=== PATIENT | male | born 1990 | race Caucasian/White ===

== ENCOUNTER 2016-06-25 14:35 | Emergency (ER) | payer OTHER ==
[~2016-06-25] VITALS: Ht 182.9 cm; Wt 90.9 kg
[~2016-06-25 14:35] MED LIST: PRAZ1CAP2 PO
[2016-06-25 14:50] VITALS: BP 132/83; PULSE 96; RESP 16; O2SAT 96
--- NOTE | 2016-06-25 16:10 | ED.REPORT ---
HPI-Abd Pain F 40 and Over Date of Service Jun 25, 2016 ED Provider: Spenser Oviedo PA-C Nida is a 26-year-old male with history of cerebral palsy who presents with chief complaint of nerve pain in the left side of his face. Patient states that the pain was present when he woke up about 3 hours ago. He describes the pain as "like when you put an ice cube on a tooth" or "electric." He says the pain also refers to his left palm. Denies headache. He has no other complaints. Nursing Notes Stated Complaint: FACIAL NERVE PAIN Chief Complaint: General Complaint Nursing Notes Reviewed: Yes Allergies: Coded Allergies: haloperidol (Verified Allergy, Unknown, 12/01/15) lorazepam (Verified Allergy, Unknown, Muscle cramps, 12/01/15) Scheduled Carbamazepine (Carbamazepine) 200 Mg Tablet 200 MG PO BID Prazosin (Prazosin) 1 Mg Capsule 2 MG PO HS Scheduled PRN Carbamazepine (Carbamazepine) 200 Mg Tablet 200 MG PO QID PRN PRN For Pain Ibuprofen (Ibuprofen) 600 Mg Tablet 600 MG PO QID PRN PRN For Pain General Time Seen by MD: 15:55 Chief Complaint Other (nerve pain) Sudden in Onset?: Yes Past Medical History Past Medical History Polysubstance abuse Multiple suicide attempts Cerebral Palsy Renal insufficiency Depression Past Surgical History None Family History noncontributory Smoking History Current Every Day Smoker Social History Polysubstance drug use Alcohol Use: 1-3 per day Drug Use: In recovery, Meth Other Social History: Local resident, Homeless Ambulatory Status Independent Review of Systems General: Denies fever, chills, malaise. HEENT: Denies congestion, headache, sore throat. Respiratory: Denies dyspnea, Cardiovascular: Denies chest pain Gastrointestinal: Denies vomiting, diarrhea, abdominal pain. Otherwise as noted in HPI. Physical Exam General: Well developed, well nourished, no acute distress. Head: Atraumatic, normocephalic. Eyes: No scleral icterus or injection. No discharge. Vision grossly intact. ENT: Voice clear, hearing grossly intact. Respiratory: Regular rate and rhythm. Breath sounds present, clear to auscultation and equal bilaterally. Cardiovascular: Regular rate and rhythm, without murmur, gallop or rub. No pedal edema. Gastrointestinal: Abdomen flat and non-tender without guarding or rebound. Bowel sounds normoactive. Skin: Warm and dry. Neurological: Highly reactive to any touch such as auscultation of the lungs. Slightly ataxic heel toe gait. Cranial nerves: Vision grossly intact, PERRL, EOMI. slight left facial droop, highly tender to light touch over distribution of trigeminal nerve. Voice clear with slightly slurred speech, no drooling/pooling of saliva, uvula rises midline. Psychological: alert and oriented. Speech appropriate, linear and logical. Behavior appropriate. Vital Signs Vital Signs (First) Date Time Temp Pulse Resp B/P Pulse Ox O2 Delivery O2 Flow Rate FiO2 06/25/16 14:50 36.9 96 16 132/83 96 Room Air Initial VS: Reviewed, Vital signs normal Re-Eval/Medical Decision Med Decision/Clinical Course I discussed this case with Dr. Aguirre In brief this is a 26-year-old male well known to the department presents with chief complaint of "electric" nerve pain over his face that began approximately 3 hours ago. History of cerebral palsy. Denies headache. Presentation is inconsistent with CVA or intracranial mass. Possible trigeminal neuralgia. Prescribed carbamazepine and primary care follow-up. Provided return precautions Discharge & Departure Primary Impression: Trigeminal neuralgia of left side of face Disposition: Home Discharge Condition All VS Reviewed: Yes Condition: Stable Patient Instructions: Trigeminal Neuralgia (ED) Additional Instructions: Evaluation for nerve pain in the left side of the face. Skin physical are reassuring this is unlikely to be an emergent condition such as a stroke or brain tumor. Evaluation is most consistent with trigeminal neuralgia, which is pain in the major nerve in your face. This is treated with carbamazepine ( Tegretol) 200 mg twice a day, which I have written a prescription for. Please follow up with your primary care provider in the next few days to monitor progress and possibly adjust the medication. Return to emergency department for any new or worsening symptoms. Referrals: Goyo To DO (PCP) EDSupervising Provider for APC: Lexi Aguirre MD, Shawna L MD Jun 25, 2016 16:10 Spenser Oviedo PA-C Jun 25, 2016 16:17
[2016-06-25] MEDS ORDERED: CRB200T PO (16:18)
[2016-06-26] MEDS ORDERED: IBUP-1827 PO (06:17)
[2016-06-26] MEDS ORDERED: CRB200T PO (06:17)
[2016-09-03] MEDS ORDERED: FLUO40CA12 PO (16:20)
[2016-09-03] MEDS ORDERED: NALT50TA PO (16:20)
== END 2016-06-25 16:15 | disposition home or self-care (01) ==
LOC: SED 14:35
DX: G50.0 Trigeminal neuralgia (principal); F17.200 Nicotine dependence, unspecified, uncomplicated; Z59.0 Homelessness; Z88.5 Allergy status to narcotic agent

== ENCOUNTER 2016-06-25 23:51 | Emergency (ER) | payer OTHER ==
[~2016-06-25] VITALS: Ht 182.9 cm; Wt 90.9 kg
[~2016-06-25 23:51] MED LIST changes: +CRB200T PO
[2016-06-26 00:01] VITALS: BP 146/96; PULSE 101; RESP 12; O2SAT 100
--- NOTE | 2016-06-26 03:06 | ED.REPORT ---
HPI-Facial Injury Date of Service Jun 26, 2016 ED Provider: Ronnie Ellis MD 26 year old male with a history of cerebral palsy presents to the ED with five hours of persistent left side facial pain. Patient was seen here in the department earlier today for similar and diagnosed with trigeminal neuralgia. He states that he has not used methamphetamine in the past year. Nursing Notes Stated Complaint: NERVE ISSUE-WAS SEEN TODAY IN THE ER Chief Complaint: General Complaint Nursing Notes Reviewed: Yes Allergies: Coded Allergies: haloperidol (Verified Allergy, Unknown, 12/01/15) lorazepam (Verified Allergy, Unknown, Muscle cramps, 12/01/15) Scheduled Carbamazepine (Carbamazepine) 200 Mg Tablet 200 MG PO BID Prazosin (Prazosin) 1 Mg Capsule 2 MG PO HS Scheduled PRN Carbamazepine (Carbamazepine) 200 Mg Tablet 200 MG PO QID PRN PRN For Pain Ibuprofen (Ibuprofen) 600 Mg Tablet 600 MG PO QID PRN PRN For Pain General Time Seen by Provider: 02:51 Chief Complaint Other (Facial Pain, Left) Hx Obtained From: Patient Arrived By: Walk-in Onset Occurred: 5 - 8 hours ago (5) Symptom Duration: Since onset Progression Since Onset: Constant Past Medical History Past Medical History Polysubstance abuse Multiple suicide attempts Cerebral Palsy Renal insufficiency Depression Past Surgical History None Family History noncontributory Smoking History Current Every Day Smoker Social History Polysubstance drug use Alcohol Use: 1-3 per day Drug Use: In recovery, Meth Other Social History: Local resident, Homeless Ambulatory Status Independent Review of Systems Review of Systems Note: +Facial Pain, Left Musculoskeletal: Denies: Back pain, Extremity pain, Joint pain, Lumbar pain Neurologic: Denies: Focal weakness, Headache, Numbness, Syncope Complete sys rev & neg: except as marked. Physical Exam Initial Vital Signs Vital Signs (First) Date Time Temp Pulse Resp B/P Pulse Ox O2 Delivery O2 Flow Rate FiO2 06/26/16 00:01 36.7 101 12 146/96 100 Room Air Initial VS: Reviewed, Vital signs abnormal Respiratory: Breath sounds normal, Clear to auscultation, No respiratory distress Cardiovascular: Regular rate & rhythm, Heart sounds normal, Intact distal pulses Extremities: Vascular intact, Neuro intact, No swelling, No tenderness Head / Eyes: Normocephalic Fullness near the left angle of the jaw. ENT: Airway patent, Mucous membranes moist Neck: Atraumatic, Supple, Full range of motion, No swelling, Non-tender, No midline vertebral tend, No masses Neurologic: Oriented X3, Speech NL, No motor deficits Left side facial pain, exquisitely tender to touch. General/Constitutional: Awake, Alert, Well nourished Behavior: Positive: Anxious Interpretation & Diagnostics Lab Results Interpretation Test 06/26/16 03:30 Hold Urine Received (Received) Re-Eval/Medical Decision Med Decision/Clinical Course 26-year-old male previously diagnosed with trigeminal neuralgia. He was given gabapentin and carbamazepine here. He was given a prescription for carbamazepine and a referral back to his primary doctor for further evaluation, treatment, and ongoing management. Source of Hx: Old records Counseled Regarding: Diagnosis, Need for follow-up, When/why to return to ED Discharge & Departure Impression: Primary Impression: Trigeminal neuralgia of left side of face Disposition: Home Discharge Condition All VS Reviewed: Yes Condition: Stable Patient Instructions: Trigeminal Neuralgia (ED) Additional Instructions: Carbamazepine 200 mg 4 times a day as needed for pain, #30 prescription written. Ibuprofen 600 mg 4 times a day as needed for pain, #100 prescription written. See your regular doctor as soon as possible to discuss this illness and further evaluation and other treatment modalities. Referrals: Goyo To DO (PCP) Scribe Attestation Portions of this note were transcribed by Darek Garcia. I, Dr. Ellis, personally performed the history, physical exam and medical decision-making; I reviewed and confirmed the accuracy of the information in the transcribed note. Signed by: Jeremy Arellano. 06/26/2016, 06:33 copies to: Goyo To Howard L MD Jun 26, 2016 03:06 Jensen Cardona Jun 26, 2016 03:11 DAREK GARCIA Jun 26, 2016 03:41
[2016-06-26] MEDS ORDERED: carBAMazepine 100 mg Chewable Tablet PO ONE (04:00)
[2016-06-26] MEDS ORDERED: carBAMazepine 200 mg Tablet PO ONE (04:15)
[2016-06-26] MEDS ORDERED: Ketorolac 30 mg/mL 2 mL Inj IM ONE (04:55)
[2016-06-26] MEDS ORDERED: CRB200T PO (06:17)
[2016-06-26] MEDS ORDERED: IBUP-1827 PO (06:17)
[2016-06-26 06:37] VITALS: BP 136/82; PULSE 100; RESP 16; O2SAT 100
[2016-09-03] MEDS ORDERED: FLUO40CA12 PO (16:20)
[2016-09-03] MEDS ORDERED: NALT50TA PO (16:20)
== END 2016-06-26 06:19 | disposition home or self-care (01) ==
LOC: SED 23:51
DX: G50.0 Trigeminal neuralgia (principal); F17.200 Nicotine dependence, unspecified, uncomplicated; Z59.0 Homelessness; Z88.5 Allergy status to narcotic agent
CPT/HCPCS: 81002; 96372; 99284; J1885

== ENCOUNTER 2016-08-28 03:18 | Emergency (ER) | payer OTHER ==
[~2016-08-28 03:18] MED LIST changes: +IBUP-1827 PO
[2016-08-28] MEDS ORDERED: Ketamine 100 mg/mL 5 mL Inj ONE (03:38)
[2016-08-28 03:41] VITALS: BP 144/79; PULSE 141; RESP 24; O2SAT 94
[2016-08-28] MEDS ORDERED: Ketamine 100 mg/mL 5 mL Inj IM ONE ×2 (03:45→04:45)
--- NOTE | 2016-08-28 03:52 | ED.REPORT ---
HPI-Altered Mental Status Date of Service Aug 28, 2016 ED Provider: Goyo Kraus MD Patient is an intoxicated 26 year old male with a history of cerebral palsy, polysubstance abuse, and depression with prior suicide attempts via overdose who presents to the ED via PD following a reported intentional aspirin overdose this morning. The patient called 911 this morning, stating that he had taken 50x aspirin tablets and that he wanted to . The patient stated that he was walking in the [place] and refused to tell the PD his exact location. When he became suspicious that PD would find him, he claimed that he would shoot himself and anyone that he encountered. PD tried to apprehend the patient after he was spotted near [facility]. They chased the patient for 45 minutes using a dog, with the patient running through yards and fences. They finally found the patient laying on the ground limp, catatonic, and groaning. The patient had to be carried by EMS to the ambulance. On arrival to the ED the patient is agitated and states that "I will be good if you let me go". Patient admits to drinking alcohol and states that he used "a little meth" when asked about drug use. He will not admit what medications he took in his apparent overdose. History is severely limited by the patients uncooperative and intoxicated state. Nursing Notes Stated Complaint: INTOXICATED/SUICIDAL Chief Complaint: Psychiatric Complaint Nursing Notes Reviewed: Yes Allergies: Coded Allergies: haloperidol (Verified Allergy, Unknown, 12/01/15) lorazepam (Verified Allergy, Unknown, Muscle cramps, 12/01/15) Scheduled Carbamazepine (Carbamazepine) 200 Mg Tablet 200 MG PO BID Prazosin (Prazosin) 1 Mg Capsule 2 MG PO HS Scheduled PRN Carbamazepine (Carbamazepine) 200 Mg Tablet 200 MG PO QID PRN PRN For Pain Ibuprofen (Ibuprofen) 600 Mg Tablet 600 MG PO QID PRN PRN For Pain General Time Seen by MD: 03:38 Chief Complaint Not acting right Hx Obtained From: Police Unable to Obtain Hx: Intoxicated Arrived By: Police Sudden in Onset?: No Onset Occurred: 1 - 4 hours ago Symptom Duration: Since onset Similar Sx Previous: Yes Past Medical History Past Medical History Polysubstance abuse Multiple suicide attempts, drug overdose of aspirin Cerebral Palsy Renal insufficiency Depression Past Surgical History None Family History noncontributory Smoking History Current Every Day Smoker Social History Polysubstance drug use Alcohol Use: 1-3 per day Drug Use: In recovery, Meth Other Social History: Local resident, Homeless Ambulatory Status Independent Review of Systems Unable to Obtain ROS Intoxicated Physical Exam Initial Vital Signs Vital Signs (First) Date Time Temp Pulse Resp B/P Pulse Ox O2 Delivery O2 Flow Rate FiO2 08/28/16 03:41 37.6 141 24 144/79 94 Room Air Initial VS: Reviewed Skin: Warm, Dry General/Constitutional: Awake Alertness: Positive: Disoriented Behavior: Positive: Uncooperative (thrashing) Disheveled. Initial exam is limited as the patient is uncooperative. Head / Eyes: Atraumatic, Normocephalic, PERRL Neck: Supple, Full range of motion Respiratory / Chest: Breath sounds NL, Breath sounds = bilat, No respiratory distress, No rales, No rhonchi, No wheezing Cardiovascular: Heart rate NL, Regular rhythm, Heart sounds NL, No murmurs Neurologic: Speech NL, No motor deficits Abdomen: Soft, Non-tender Unable to Evaluate: Positive: Uncooperative Upper Extremity / MS: No deformity bruising on the bilateral arms from being restrained Lower Extremity / Pelvis / MS: Atraumatic, No deformity Interpretation & Diagnostics Lab Results Interpretation Result Diagram: 08/28/16 0400 08/28/16 0400 Test 08/28/16 04:00 08/28/16 04:10 White Blood Count 7.4th/mm3 (3.8-10.1) Red Blood Count 4.91mil/mm3 (4.40-5.80) Hemoglobin 15.5g/dL (13.8-17.2) Hematocrit 44.4% (41.0-50.0) Mean Corpuscular Volume 90.4fL (81-100) Mean Corpuscular Hemoglobin 31.6pg (27.0-35.0) Mean Corpuscular Hemoglobin Concent 34.9% (32.0-37.0) Red Cell Distribution Width 12.4% (12.3-15.4) Platelet Count 270bil/L (150-400) Neutrophils (%) (Auto) 82.8% (40-74) Lymphocytes (%) (Auto) 14.6% (14-46) Monocytes (%) (Auto) 2.3% (4-12) Eosinophils (%) (Auto) 0.1% (0-5) Basophils (%) (Auto) 0.1% (0-3) Sodium Level 142mEq/L (134-144) Potassium Level 4.2mEq/L (3.5-5.2) Chloride Level 102mEq/L (97-108) Carbon Dioxide Level 18mmol/L (18-29) Blood Urea Nitrogen 12mg/dL (6-20) Creatinine 0.96mg/dL (0.76-1.27) Estimat Glomerular Filtration Rate 100mL/min (>59) Glucose Level 121mg/dL (60-99) Calcium Level 9.4mg/dL (8.5-10.1) Total Bilirubin 0.4mg/dL (0.0-1.2) Aspartate Amino Transf (AST/SGOT) 27U/L (0-50) Alanine Aminotransferase (ALT/SGPT) 35U/L (0-44) Alkaline Phosphatase 77U/L (25-150) Total Protein 8.1g/dL (6.4-8.4) Albumin 5.2g/dL (3.4-5.0) Thyroid Stimulating Hormone (TSH) 3.170uIU/mL (0.450-4.500) Hold Robert Top Tube Received (Received) Salicylates Level < 3.0ug/mL (30-250) Acetaminophen Level < 15.0ug/mL Rx (10-25) Alcohols 184mg/dL (0-10) Hold Urine Received (Received) Drug Screen / Level Interp Urine drug screen neg CT Head Interpretation CONCLUSION: Normal. Radiologist: Segundo Yadav MD 08/28/2016 - 5:28:56 AM PDT Study: Head CT no contrast Interpretation / Wet Read by: Interpret - Radiologist Re-Eval/Medical Decision Med Decision/Clinical Course 26-year-old with background of schizophrenia, reported suicidal ideation and bizarre behavior that resulted in his arrest and being brought here. He continues to be uncooperative and required ketamine to avoid him injuring himself in restraints, and then Zyprexa. His evaluation is essentially unremarkable otherwise. He has no evidence of either acetaminophen or salicylates on board, a negative tox screen, an elevated alcohol level, and a negative CT. He will need evaluation by mental health services once he has returned from sedation. Signed out at [address] Aguiar. Source of Hx: Old records Re-Evaluation/Progress #1: Time of Eval: 03:45 Re-Evaluation/Progress Note: Patient was evaluated and placed into restraints due to combative behavior. Face to face evaluation done. Re-Evaluation/Progress #2: Time of Eval: 05:43 Re-Evaluation/Progress Note: Rechecked the patient, who is sleeping in bed comfortably. He has snoring respirations and is drooling He remains restrained. Patient Discharge & Departure Shift Change Sign-Out Patient Care Transferred: Yes Discussed Complaint(s): Yes Laboratory Evaluation: Back, reviewed by me Additonal Information: [employer]CHIT[employer] evaluation once sober Impression: Primary Impression: Suicidal ideation Additional Impressions: Acute situational disturbance Alcohol abuse Alcohol intoxication Complication of substance-induced condition: uncomplicated Qualified Code: F10.120 - Alcohol abuse with intoxication, uncomplicated Referrals: Goyo To DO (PCP) Care Transferred to: Dr. Aguiar Care Transferred at: 06:00 Scribe Attestation Portions of this note were transcribed by Ladi Crews. I, Dr. Kraus personally performed the history, physical exam and medical decision-making; I reviewed and confirmed the accuracy of the information in the transcribed note. Signed by: Jeremy Quinn, 08/28/2016 0546 copies to: Goyo To Christopher W MD Aug 28, 2016 03:51 Ladi Crews Aug 28, 2016 04:04
[2016-08-28 04:44] LABS: BASOPHILS % (AUTO) 0.1 % (0-3); EOSINOPHILS % (AUTO) 0.1 % (0-5); MONOCYTES % (AUTO) 2.3 % (4-12); Mean Corpuscular Hemoglobin 31.6 pg (27.0-35.0); Mean Corpuscular Volume 90.4 fL (81-100); NEUTROPHILS % (AUTO) 82.8 % (40-74); Platelet Count 270 bil/L (150-400)
[2016-08-28 06:00] VITALS: BP 136/78; PULSE 82; RESP 16; O2SAT 98
--- NOTE | 2016-08-28 12:02 | DRSVH ---
PROCEDURE: CT BRAIN WITHOUT CONTRAST ([id number]) INDICATIONS: altered mental status TECHNIQUE: Noncontrast 4.5 mm thick angled axial sections acquired from the foramen magnum to the vertex, with c oronal reformats. COMPARISON: [facility], CT, CT BRAIN WO CON, 09/15/2015, 16:22. FINDINGS: Image quality: Excellent. CSF spaces: Basal cisterns are patent. No extra-axial fluid collections. Ventricles are normal in size and shape. Brain: No midline shift. No intracranial masses or hemorrhage. Mar-white matter interface is norm al. Skull and face: Calvarium and visualized facial bones are intact, without suspicious lesions. Sinuses: Visualized sinuses and mastoids are clear. IMPRESSION: 1. No acute intracranial process. Dictated by: Margarita Heaton M.D. on 08/28/2016 at 12:00 Approved by: Margarita Heaton M.D. on 08/28/2016 at 12:01
--- NOTE | 2016-08-28 13:24 | DRSVH ---
PROCEDURE: X-RAY LEFT KNEE, ONE OR TWO VIEWS ([id number]) INDICATIONS: pain TECHNIQUE: 2 views of the knee were acquired. COMPARISON: None. FINDINGS: Bones: Lucencies noted in the proximal left tibia suspicious for nondisplaced, nondepressed lateral t ibial plateau fracture. Soft tissues: Large joint effusion is noted. No suspicious soft tissue calcifications. IMPRESSION: Findings suspicious for lateral tibial plateau fracture. Recommend CT scan of the knee fo r definitive characterization. Dictated by: Rhonda Iqbal MD, PhD on 08/28/2016 at 13:21 Approved by: Rhonda Iqbal MD, PhD on 08/28/2016 at 13:23
[2016-08-28] MEDS ORDERED: HYDROcodone-APAP 5-325 mg Tablet PO ONE (14:00)
--- NOTE | 2016-08-28 15:47 | DRSVH ---
PROCEDURE: CT KNEE LEFT W/O CONTRAST ([id number]) INDICATIONS: L knee pain, tib plat fx? TECHNIQUE: Noncontrast 1-1.5 mm axial sections acquired from the mid-patella to the proximal tibia, with coronal and sagittal reformats. COMPARISON: None. FINDINGS: Image quality: Excellent. Bones: There is a comminuted fracture of the lateral tibial plateau which extends into the tibial spi libra. The posterior margin of the lateral tibial plateau fracture is depressed approximately 4 mm. The lateral margin of the lateral tibial plateau fracture is displaced approximately 4 mm. There is an a vulsion fracture of the proximal tibia medially posterior to the tibial spines at the expected attach ment site of the anterior cruciate ligament. The medial tibial plateau is intact. The distal femur is intact. The patella is intact. Soft tissues: Large knee joint effusion is noted. IMPRESSION: 1. Comminuted, depressed fracture of the lateral tibial plateau (Schatzker's II). 2. Avulsion fracture posterior to the tibial spine at the attachment site of the anterior cruciate li gament. Recommend MRI of the knee to exclude injury involving the anterior cruciate ligament. 3. Large joint effusion. Dictated by: Rhonda Iqbal MD, PhD on 08/28/2016 at 15:31 Approved by: Rhonda Iqbal MD, PhD on 08/28/2016 at 15:45
[2016-08-28] MEDS ORDERED: IBUP800T28 PO (16:32)
[2016-08-28] MEDS ORDERED: HYDR-4003 PO (16:32)
[2016-08-28 17:04] VITALS: BP 145/94; PULSE 130; RESP 18; O2SAT 98
[2016-09-03] MEDS ORDERED: FLUO40CA12 PO (16:20)
[2016-09-03] MEDS ORDERED: NALT50TA PO (16:20)
== END 2016-08-28 16:02 | disposition home or self-care (01) ==
LOC: SED 03:18 → EDBD 03:18 → SED 16:02
DX: R45.851 Suicidal ideations (principal); F43.0 Acute stress reaction; F10.220 Alcohol dependence with intoxication, uncomplicated; S82.252A Displaced comminuted fracture of shaft of left tibia, initial encounter for closed fracture; S82.113A Displaced fracture of unspecified tibial spine, initial encounter for closed fracture; X58.XXXA Exposure to other specified factors, initial encounter; Y92.9 Unspecified place or not applicable; Y99.8 Other external cause status; Y93.02 Activity, running; G80.9 Cerebral palsy, unspecified; F19.20 Other psychoactive substance dependence, uncomplicated; F32.9 Major depressive disorder, single episode, unspecified; F17.200 Nicotine dependence, unspecified, uncomplicated; F20.9 Schizophrenia, unspecified; Y90.6 Blood alcohol level of 120-199 mg/100 ml; Z91.5 Personal history of self-harm; Z59.0 Homelessness; Z88.8 Allergy status to other drugs, medicaments and biological substances
CPT/HCPCS: 36415; 51702; 70450; 73560; 73700; 80053; 82075; 84443; 85025; 96372; 99285; G0480; S0166

== ENCOUNTER 2016-09-04 09:40 | Inpatient (IN) | payer OTHER ==
[2016-09-04] VITALS (12 sets, daily range): BP systolic 123–163; BP diastolic 76–90; PULSE 89–119; RESP 14–20; O2SAT 94–98
[~2016-09-04] VITALS: Ht 182.9 cm; Wt 92.0 kg
[~2016-09-04 09:40] MED LIST changes: -CRB200T PO; +CeFAZolin Inj 2 GM in IV Premix 1 EACH IV ONE; +FLUO40CA12 PO; -IBUP-1827 PO; +NALT50TA PO; -PRAZ1CAP2 PO
[2016-09-04] MEDS ORDERED: Lactated Ringer's 1,000 ML IV ONE (09:47)
[2016-09-04] MEDS ORDERED: IBUP800T28 PO (10:24)
[2016-09-04] MEDS ORDERED: OXYC1TAB24 PO (10:25)
[2016-09-04] MEDS ORDERED: Lactated Ringer's 500 ML IV PRN (10:49)
[2016-09-04] MEDS ORDERED: Lactated Ringer's 1,000 ML IV SCH (10:49)
[2016-09-04] MEDS ORDERED: Phenylephrine 10,000 mCg/mL Inj IVPUSH PRN (10:50)
[2016-09-04] MEDS ORDERED: Ondansetron 2 mg/mL 2 mL Inj IVPUSH PRN ×2 (10:50→14:05)
[2016-09-04] MEDS ORDERED: HYDROmorphone 1 mg/mL Inj IVPUSH PRN (10:50)
[2016-09-04] MEDS ORDERED: Labetalol 5 mg/mL 4 mL Inj IV PRN (10:50)
[2016-09-04] MEDS ORDERED: MetoCLOpramide 5 mg/mL 2 mL Inj IVPUSH PRN (10:50)
[2016-09-04] MEDS ORDERED: Dexamethasone 4 mg/mL Inj IVPUSH PRN (10:50)
[2016-09-04] MEDS ORDERED: EPHEDrine Sulfate 50 mg/mL Inj IVPUSH PRN (10:50)
--- NOTE | 2016-09-04 10:53 | PCM.HPANE ---
Patient Data Surgeon Admitting Provider: Attending Provider:Win Peter DO Primary Care Physician:Goyo To DO Other Provider:Gui Junior Anesthesia Reason for Visit Left Tibial Plateau Fracture Ht/WT & BMI Height (Feet): 6 Height (Inches): 0 Weight (Kilograms): 92 Body Mass Index 27.00 Allergies Coded Allergies: haloperidol (Verified Allergy, Unknown, 12/01/15) lorazepam (Verified Allergy, Unknown, Muscle cramps, 12/01/15) Past Anesthesia History Anesthesia History: Denies:: Abnormal Airway, Anesthesia Reactions, Difficult Intubation, Fam Anesthesia Reaction Diabetes History Hx Diabetes?: No MRSA MRSA: No Medications Hypertension Medication: No Home Meds Incl Beta Fabrizio: No Reported Medications oxyCODONE-Acetaminophen 5-325 mg 1 Each Tablet1-2 Tab PO Q6H PRN For Pain Ref 0 09/04/16 Ibuprofen 800 Mg Tablet1,600 Mg PO q4hr PRN For Pain Ref 0 09/04/16 Fluoxetine (Prozac)40 Mg Riyusne05 Mg PO DAILY Ref 0 09/03/16 Naltrexone 50 Mg Ocevtp10 Mg PO DAILY 09/03/16 Discontinued Reported Medications Prazosin 1 Mg Capsule2 Mg PO HS 30 Days 12/25/13 Discontinued Scripts Ibuprofen 800 Mg [id number] Mg PO TID PRN For Pain #30 TABLET Prov:Naif Alfonso MD 08/28/16 Hydrocodone-Acetaminophen 5-325 mg 1 Each Tablet1 Tablet PO Q4H PRN For Pain #5 TABLET Prov:Naif Alfonso MD 08/28/16 Ibuprofen 600 Mg Tbuidc426 Mg PO QID PRN For Pain #100 TABLET Ref 0 Prov:Ronnie Ellis MD 06/26/16 Carbamazepine 200 Mg Rmlowg699 Mg PO QID PRN For Pain #30 TABLET Prov:Ronnie Ellis MD 06/26/16 Carbamazepine 200 Mg Ohwnyl473 Mg PO BID #30 TABLET Prov:Spenser Oviedo PA-C 06/25/16 History History of ENT Problems?: Yes HEENT History: Denies:: Abnormal Airway Cataracts Difficult Intubation Dysphagia Glaucoma Hearing Problem Sinus Problem TMJ Teeth Condition: Tooth Decay Hx of Heart Problems?: No Cardiovascular History: Positive for:: Irregular Heartbeat (hx of palpitations occasionally) Denies:: AICD Abdominal Aortic Aneurism Atrial Fibrillation Chest Pain Congestive Heart Failure Coronary Artery Disease Edema Heart Murmur Hypertension Pacemaker Peripheral Vascular Rheumatic Fever Thrombophlebitis Hx of Respiratory Problem?: No Respiratory History: Denies:: Asthma COPD Emphysema Oxygen Administration Pneumonia Tuberculosis Use of C-PAP Machine Use of Inhalers / NEBS Hx Neurologic Problems?: No Neurological History: Denies:: CVA Multiple Sclerosis Parkinson's Disease Seizures TIA Other Neurological Pertinent: cerebral palsy - lacks good coordination Hx of GI Problems?: No Gastrointestinal History: Denies:: Cirrhosis Gall Bladder Disease Gastroesphageal Reflux Gastrointestinal Bleeding Heartburn Hiatal Hernia Liver Disease Hx of Problems?: No Genitourinary History: Denies:: Kidney Stones Urinary Tract Infection Male Hx: Denies:: Prostate Problems Scrotal Mass Testicular Surgery Skin History: Denies:: History Skin Disorders? (hand scraped) Pressure Ulcers Hx Musculoskeletal Problems?: Yes Musculoskeletal History: Positive for:: Musculoskeletal Trauma (fx left tibial plateau on August 30) Denies:: Back Injury Fibromyalgia Joint Replacement Myasthenia Gravis Osteoarthritis Systemic Lupus Hx of Psycho/Social Problems?: Yes Psycho Social History: Positive for:: Hx Depression Suicide Attempt Denies:: Anxiety Bipolar Disorder Hx Surgeries?: Yes (tonsils, ) Hx Any Other Health Problems?: Yes Other History: Denies:: Cancer Thyroid Disease History Blood Transfusions: Positive for:: Accept Blood Products? Denies:: Blood Transfusions Hx Diabetes: No Hx Alcohol Use: Yes (last alcohol August 30)Hx Substance Use: Yes (meth last known dose " ayear ago" per pt - per EMR 08/28/16) Smoking Status: Current Every Day Smoker Have You Smoked inLast 12 mo: No Stop/Bang S-Snoring: Do You Snore Loudly: No T-Tired: feel tired, fatigued: No O-Obsered: Observed not breath: No P-Blood Pressure: treated: No B- Body Mass Index > 35 kg/m2: No A- Age over 50: No N- Neck Large Circumference: No G- Gender Male: Yes CLARA Total Score: 1 CLARA Risk Assessment: Low Risk, <3 Yes Risk Assessment Category Category 1A: Patient has history of documented sleep apnea, and HAS NOT received any narcotic, sedative or anesthesia administration during this stay. Category 1B: Patient has history of documented sleep apnea, and HAS received any narcotic , sedative or anesthesia administration during this stay Category 2: Patient has SUSPECTED Obstructive Sleep Apnea, and HAS received any narcotic , sedative or anesthesia administration during this stay. Category 3: Patient has SUSPECTED Obstructive Sleep Apnea and HAS NOT received narcotic, sedative or anesthesia administration during this stay. Category 4: Outpatient in Procedural Areas with known sleep apnea or who screen positive for High Risk via the STOP/BANG questionnaire. Exam Exam Vital Signs Vital Signs Date Time Temp Pulse Resp B/P Pulse Ox O2 Delivery O2 Flow Rate FiO2 09/04/16 10:18 35.3 89 16 132/90 97 Room Air General Appearance: Oriented X3 HEENT/AIRWAY: MP 2 Lungs: Normal Air Movement Heart: Regular Rate/Rhythm Meds/Labs/Diagnostics Admission Meds Current Medications Lactated Ringer's (Lr) 1,000 ml @ ud STK-MED ONCE IV Last administered on 09/04t 09:47; Start 09/04/16 at 09:47; Stop 09/04/16 at 09:48; Status DC Plan Impression Patient chart reviewed, patient interviewed and anesthestic plan with risks, benefits, and alternatives discussed, and informed consent obtained. NPO Status: 09/03/162099 ASA Physical Status: ASA3 Severe Disease Anesthetic Plan: GA, Regional Block Bene/Risks/Altern/Consents: Yes HP Complete Prior to Induction: Yes Jese Dowell MD Sep 04, 2016 10:53
[2016-09-04] MEDS ORDERED: HYDROmorphone 2 mg/mL Inj ONE (11:49)
[2016-09-04] MEDS ORDERED: Propofol 10,000 mCg/mL 20 mL Inj ONE (11:49)
[2016-09-04] MEDS ORDERED: Ondansetron 2 mg/mL 2 mL Inj ONE (11:49)
[2016-09-04] MEDS ORDERED: MetoCLOpramide 5 mg/mL 2 mL Inj ONE (11:49)
[2016-09-04] MEDS ORDERED: fentaNYL-PF 50 mCg/mL 2 mL Inj ONE (11:49)
[2016-09-04] MEDS ORDERED: Ketamine 10 mg/mL 20 mL Inj ONE (11:49)
[2016-09-04] MEDS ORDERED: Dexamethasone 4 mg/mL Inj ONE (11:49)
[2016-09-04] MEDS: 0.9% Sodium Chloride 1,000 ML IV SCH (14:03)
[2016-09-04] MEDS ORDERED: Acetaminophen IV 1,000 MG in IV Premix 1 EACH IV PRN (14:05)
[2016-09-04] MEDS ORDERED: Polyethylene Glycol (PEG) 17 Gm Powder PO PRN (14:05)
[2016-09-04] MEDS ORDERED: Magnesium Hydroxide 10 mL Oral Concentration PO PRN (14:05)
[2016-09-04] MEDS ORDERED: oxyCODONE-Acetamin 5-325 mg Tablet PO PRN (14:05)
[2016-09-04] MEDS ORDERED: diphenhydrAMINE 25 mg Capsule PO PRN (14:05)
[2016-09-04] MEDS: fentaNYL-PF 50 mCg/mL 2 mL Inj IVPUSH PRN ×2 (14:45→14:55)
--- NOTE | 2016-09-04 14:50 | PCM.HPMED ---
Subjective Date of Service Sep 04, 2016 Primary Provider: Admitting Physician: Primary Care Physician: Goyo To DO Attending Physician: Win Perez DO Chief Complaint: Left tibial plateau fracture, status post ORIF by Dr. Mcgill, alcohol abuse currently on naltrexone, depression History of Present Illness: 26-year-old male with past medical history depression, trigeminal neuralgia, alcohol abuse, cerebral palsy is seen for a consult after he underwent left tibial plateau fracture repair by Dr. PEREZ. He says that he was climbing trees on a [place] and he fell approximately foot for 5 days ago4 days ago. He states he consumed some alcohol prior to this He states that he was taken to the ER right after he was given 1 Vicodin. He was unable to bear weight right after. He he did not receive any pain medications from ER because he was taking as a lot of ibuprofen. He was seen by Dr. Flynn today at which point he received multiple pain medications. He stopped NALTREXONE as he understands he should not take it with pain meds. His last dose was yesterday morning. He states that he takes Prozac for his depression, he tried to hurt himself back when he was a teenager and was hospitalized. Nola Espino is disconjugate for medical management. At this time of interview patient is recovering from anesthesia and appears slightly groggy. He states he had no fevers, cough, diarrhea, recent infections. All other review of systems negative except as stated here Allergies Coded Allergies: haloperidol (Verified Allergy, Unknown, 12/01/15) lorazepam (Verified Allergy, Unknown, Muscle cramps, 12/01/15) Home Medications Prozac 40 mg daily, naltrexone 50 mg by mouth daily, oxycodone 53 25 every 4 hours when necessary for pain PMH Depression, alcohol abuse, cerebral palsy Surgical History Tonsillectomy Family History Maternal grandmother, maternal grandfather: Diabetes mellitus type II, cancer Parents are both healthy Social History Hx Alcohol Use: Yes (last alcohol August 30) Hx Substance Use: Yes (meth last known dose " ayear ago" per pt - per EMR ) Hx Tobacco Use: Yes Smoking Status: Current Every Day Smoker (consumes 1 can of tobacco every 3 days) Exam Vital Signs Vital Sign - Last Date Time Temp Pulse Resp B/P Pulse Ox O2 Delivery O2 Flow Rate FiO2 09/04/16 10:18 35.3 89 16 132/90 97 Room Air Exam Gen.: No acute distress, appears to be snacking lips, thin-appearing HEENT: Poor dentition Heart:: Regular rate and rhythm no S3-S4 murmurs Lungs: Clear to auscultation, no crackles or wheezes Abdomen: Flat and nontender, nondistended normal bowel sounds Extremities: Negative for altered sensation Neck: Trachea midline negative for thyromegaly Lymphatics: Negative for lymphadenopathy Neuro: Oriented to person and date and place. No focal deficits Psych: Appears mildly anxious Lab and Diagnostics Labs Laboratory Tests 72 Hours Test 09/04/16 18:05 White Blood Count 10.9th/mm3 (3.8-10.1) Red Blood Count 4.20mil/mm3 (4.40-5.80) Hemoglobin 13.1g/dL (13.8-17.2) Hematocrit 38.7% (41.0-50.0) Mean Corpuscular Volume 92.1fL (81-100) Mean Corpuscular Hemoglobin 31.2pg (27.0-35.0) Mean Corpuscular Hemoglobin Concent 33.9% (32.0-37.0) Red Cell Distribution Width 13.2% (12.3-15.4) Platelet Count 227bil/L (150-400) Neutrophils (%) (Auto) 93.4% (40-74) Lymphocytes (%) (Auto) 4.6% (14-46) Monocytes (%) (Auto) 1.1% (4-12) Eosinophils (%) (Auto) 0.3% (0-5) Basophils (%) (Auto) 0.1% (0-3) Sodium Level 140mEq/L (134-144) Potassium Level 4.3mEq/L (3.5-5.2) Chloride Level 101mEq/L (97-108) Carbon Dioxide Level 25mmol/L (18-29) Blood Urea Nitrogen 11mg/dL (6-20) Creatinine 0.77mg/dL (0.76-1.27) Estimat Glomerular Filtration Rate 129mL/min (>59) Glucose Level 151mg/dL (60-99) Calcium Level 9.3mg/dL (8.5-10.1) X-Rays, CTs and MRIs [facility] Diagnostic Imaging [place] [address] Patient Name: MARIANGEL GARRISON MR#: [id number] [place] [facility] [place]ing Phys: Win Perez DO Date of Service: 09/04/16 1406 PROCEDURE: X-RAY LEFT KNEE, ONE OR TWO VIEWS ([id number]) INDICATIONS: LEFT KNEE SURGERY TECHNIQUE: 2 views of the knee were acquired. COMPARISON: [facility], CR, XR KNEE 1 OR 2VW LT, 08/28/2016, 12:29. FINDINGS: Bones: Improved alignment status post ORIF of lateral tibial plateau fracture. Surgical hardware and associated fixation screws in expected position. Bony alignment is stable. Surgical melissa within the soft tissues present. Soft tissues: Small joint effusion. No suspicious soft tissue calcifications. IMPRESSION: Improved alignment status post ORIF of tibial plateau fracture. Dictated by: Andreas Fleming RR Interpreted: Justin Cervantes MD on 09/04/2016 at 16 :39 Transcribed by: EDIN on 09/04/2016 at 16:40 Approved by: Justin Cervantes M.D. on 09/04/2016 at 17:15 Assessment & Plan This is a 26-year-old patient status post ORIF left tibial plateau fracture. Patient was in naltrexone for alcohol abuse Assessment #1 status post ORIF left tibial plateau fracture -- Continue pain control per surgery. Consider switching pain medication to morphine or fentanyl if he does not get enough relief with Dilaudid as these are recommended in patients who were on naltrexone per up-to-date -- Plan to restart Prozac tomorrow to avoid serotonin syndrome due to risk of general anesthetic agents -- CBC, CMP -- Encourage ambulation -- Aspirin prophylaxis per orthopedic surgery Depression: Continue Prozac medication starting tomorrow a.m. Alcohol abuse: We plan to hold naltrexone until he is able to manage his pain better without narcotics. Documented metabolite halftime 13-14 hours, there may still be some remaining in his system until tomorrow Disposition: Discharge plan per orthopedic surgery Thank you for the consult will continue to follow the patient Pain Evaluation: Adequate Pain Control VTE Prophylaxis: Other (Aspirin) Lin Castorena DO Sep 04, 2016 14:50
--- NOTE | 2016-09-04 16:00 | NUR ---
Post op Post op ORIF patella. PRANAV wrapped and immobilizer on. To be non weight bearing on that left leg. A&OX4. IV Right FA in use. Pain 5/10 but declines pain medication at this time. RA, Denies CP, SOB, Nausea. Care continues
[2016-09-04] MEDS: Sodium Chloride LOK Flush 10 mL Syringe IV SCH (16:30)
--- NOTE | 2016-09-04 16:40 | DRSVH ---
PROCEDURE: X-RAY LEFT KNEE, ONE OR TWO VIEWS ([id number]) INDICATIONS: LEFT KNEE SURGERY TECHNIQUE: 2 views of the knee were acquired. COMPARISON: [facility], CR, XR KNEE 1 OR 2VW LT, 08/28/2016, 12:29. FINDINGS: Bones: Improved alignment status post ORIF of lateral tibial plateau fracture. Surgical hardware and associated fixation screws in expected position. Bony alignment is stable. Surgical melissa within the soft tissues present. Soft tissues: Small joint effusion. No suspicious soft tissue calcifications. IMPRESSION: Improved alignment status post ORIF of tibial plateau fracture. Dictated by: Andreas Fleming [facility] Interpreted: Justin Cervantes MD on 09/04/2016 at 16:39 Transcribed by: EDIN on 09/04/2016 at 16:40 Approved by: Justin Cervantes M.D. on 09/04/2016 at 17:15
--- NOTE | 2016-09-04 16:52 | PCM.ANEP1 ---
Post Anesthesia Phase 1 PACU Phase 1 Assessment Vital Signs Vital Signs Date Time Temp Pulse Resp B/P Pulse Ox O2 Delivery O2 Flow Rate FiO2 09/04/16 16:45 110 18 96 Room Air 09/04/16 16:05 106 18 131/85 96 Room Air 09/04/16 15:55 99 15 135/77 97 Room Air 09/04/16 15:45 96 14 139/76 97 Room Air 09/04/16 15:25 99 15 123/77 96 Room Air 09/04/16 15:15 104 17 135/81 98 Room Air 09/04/16 15:00 99 15 140/87 94 Room Air 09/04/16 14:45 95 15 163/88 97 Room Air 09/04/16 14:40 98 14 152/82 97 Simple Mask 10 09/04/16 14:35 36.4 93 17 144/81 98 Simple Mask 10 09/04/16 10:18 35.3 89 16 132/90 97 Room Air Anesthetic Administered: GA Level of Alertness: Awake, talking RODRIGUEZ's with Equal Strength: Yes Pain: No Nausea or Vomiting: No Lungs: Normal Air Movement Jese Dowell MD Sep 04, 2016 16:52
--- NOTE | 2016-09-04 16:52 | PCM.ANEP2 ---
Post Anesthesia Evaluation ASA/CMS Post Anesthesia VS in Patient's Normal Range?: Yes Resp Stable; Airway Patent?: Yes CV Function & Hydration Stable: Yes Mental Status Recovered?: Yes Pain control Satisfactory?: Yes N/V Control Satisfactory?: Yes Jese Dowell MD Sep 04, 2016 16:52
[2016-09-04 18:13] LABS: BASOPHILS % (AUTO) 0.1 % (0-3); EOSINOPHILS % (AUTO) 0.3 % (0-5); MONOCYTES % (AUTO) 1.1 % (4-12); Mean Corpuscular Hemoglobin 31.2 pg (27.0-35.0); Mean Corpuscular Volume 92.1 fL (81-100); NEUTROPHILS % (AUTO) 93.4 % (40-74); Platelet Count 227 bil/L (150-400)
--- NOTE | 2016-09-04 18:13 | OP ---
[address] [address] OPERATIVE REPORT PATIENT: MARIANGEL GARRISON : 1990 MR#: [id number] ADMIT: 09/04/2016 JOB ID: [id number] DATE OF SURGERY: 09/04/2016 PREOPERATIVE DIAGNOSIS(ES): Left lateral tibial plateau fracture split, depression type. POSTOPERATIVE DIAGNOSIS(ES): Left lateral tibial plateau fracture split, depression type. PROCEDURE: Left tibial plateau open reduction and internal fixation with bone grafting. SURGEON: Win Peter D.O. WASHING MACHINE ASSEMBLER: Aminta Shah PA-C. INDICATIONS: The patient is a 26-year-old male who was climbing in a tree and fell approximately 15 feet, injuring his left knee. He was placed into a knee immobilizer, and has been primarily nonweightbearing, although he has been having some difficulty with this as he has some ataxia from cerebral palsy and a weak left arm. We discussed treatment options for his fracture which has split depression with greater than 5 mm of depression of the posterolateral tibial plateau, and I recommended open reduction and internal fixation with bone grafting. We discussed the risks, benefits, and possible complications of surgery. All questions were answered and he and his mother wished to proceed with the surgery. A surgical forceps fabricator was required for the successful completion of this procedure. PROCEDURE IN DETAIL: The patient was brought to the operating room. He was given a preoperative antibiotic and nerve block as well as general anesthetic. Surgical time-out was performed. The left lower extremity was sterilely prepped and draped. A tourniquet was used for hemostasis. An incision was made over the left lateral knee centered over Gerdy's tubercle. Dissection was carefully carried through the subcutaneous tissue. Electrocautery was used for hemostasis. The iliotibial band was incised in line with the skin incision centered over Gerdy's tubercle and released off the tibia off of Gerdy's tubercle. This was carried along the proximal tibia about 1 cm from the tibial crest, and muscle was elevated, leaving the periosteum intact off of the anterolateral tibia. Dissection was carried proximally and a submeniscal arthrotomy was performed. Unfortunately, my initial incision was above the meniscus due to the depression, and I irrigated and then repaired this small defect in the capsule and performed a submeniscal arthrotomy in order to visualize the fracture. This afforded excellent visualization of the posterolateral plateau. I then placed an ACL reamer over the curving portion of the metaphyseal tibia and then tamped the articular surface back up using angled tamps and bone graft which was placed into the wound in order to help with supporting the articular surface. I tamped up the posterolateral joint surface as well as the posterior portion of the medial eminence to the extent that I could, and I visualized the fracture which had a very smooth articular surface with no step-off. A small 3.5 mm small curve proximal tibia variable angle Synthes locking plate was then applied and the large bone reduction forceps were used to compress the fracture and the proximal tibia. This was then secured with a nonlocking 3.5 screw distally as well as a nonlocking partially threaded screw proximally, yielding excellent compression and then we added additional locking screws using the posterior holes proximally as well as a kickstand type screw and additional 3.5 cortex screw distally, all of which yielded excellent fixation of the fracture. Confirmation was made with biplane fluoroscopy. The wound was then irrigated and closed with repair of the meniscus using 0 Ethibond in a mattress fashion. The iliotibial band was repaired with a running 0-Vicryl and the subcu was closed with 2-0 Vicryl. The skin was closed with melissa. Sterile dressings and a hinged knee brace were applied. The patient tolerated the procedure well. Blood loss was 25 cc. Postoperative protocol: A intraoperative x-ray was taken at the completion of the procedure to confirm satisfactory alignment and position of the hardware and reduction. I would like the patient to remain nonweightbearing on the left lower extremity for likely a period of 8-12 weeks. I would like him to keep the leg lock straight for the 1st six weeks and then he may begin working on range of motion at about week 4-6. Will anticipate that he will need to be in the hospital for two nights to help with mobilization as he has been having some difficulty given his cerebral palsy and would like to have the therapist have a chance to work with him. I would also like to consult the hospitalist regarding his perioperative medical management. He is given a prescription for Percocet at the outpatient clinic #90 to use postoperatively upon his discharge. We will also plan to use aspirin 325 b.i.d. for DVT prophylaxis for six weeks postoperatively.
[2016-09-04] MEDS: Senna-Docusate 8.6-50 mg Tablet PO SCH (20:06)
[2016-09-05] MEDS: Sodium Chloride LOK Flush 10 mL Syringe IV SCH ×3 (00:01→16:30)
[2016-09-05] MEDS: 0.9% Sodium Chloride 1,000 ML IV SCH ×4 (00:36→21:03)
[2016-09-05 00:45] VITALS: BP 115/57; PULSE 71; RESP 22; O2SAT 97
[2016-09-05 05:13] VITALS: BP 109/65; PULSE 90; RESP 20; O2SAT 95
--- NOTE | 2016-09-05 05:40 | PCM.PNMED ---
Subjective Date of Service Sep 05, 2016 Subjective Patient is seen sitting up in bed. He is alert oriented and cooperative to exam. Pleasant mood and appreciative of the staff. He is endorsing increased pain today and asking for a nerve block. We suggested some gabapentin, morphine and his agreeable to this. Per staff he is not taking much Dilaudid, they have been giving him by mouth opioid medication. He states he has not moved much except for 10 minutes and physical therapy came in. He is appreciated with his Prozac medication because he knows he needs it. Is taking good by mouth intake. He says he needs to have a bowel movement but he is afraid pain will come back if he gets up. I encouraged him to ask for nursing help if he needs to go to the bathroom. Exam Vital Signs Vital Sign - Last Date Time Temp Pulse Resp B/P Pulse Ox O2 Delivery O2 Flow Rate FiO2 09/05/16 05:13 36.8 90 20 109/65 95 Room Air 09/04/16 14:40 10 Intake and Output 09/04/16 09/04/16 09/05/16 Cumulative From/Thru 15:00 23:00 07:00 09/03/16 16:06 - 09/04/16 20:00 Intake Total 950 ml 100 ml 1050 ml Output Total 800 ml 800 ml Balance 950 ml -700 ml 250 ml Intake IV Total 950 ml 100 ml 1050 ml Output Urine Total 800 ml 800 ml Exam Gen.: No acute distress HEENT: Normocephalic, atraumatic Heart: Regular rate and rhythm no S3-S4 sounds Lungs: CTA bilaterally no crackles or wheezes Abdomen flat nontender normal bowel sounds Extremities: He is able to move his toes, denies altered sensation Neuro: No focal deficits Psych negative for anxiety IVs and Medications IV Fluids Discontinued Medications Reviewed: Medications were reviewed in detail Lab and Diagnostics Result Diagram: 09/04/16180409/04/161804 X-Rays, CTs and MRIs [facility] Diagnostic [place] [address] Patient Name: MARIANGEL GARRISON MR#: [id number] [place] [facility] [place] Phys: Win Peter DO Date of Service: 09/04/16 1406 PROCEDURE: X-RAY LEFT KNEE, ONE OR TWO VIEWS ([id number]) INDICATIONS: LEFT KNEE SURGERY TECHNIQUE: 2 views of the knee were acquired. COMPARISON: [facility], CR, XR KNEE 1 OR 2VW LT, 08/28/2016, 12:29. FINDINGS: Bones: Improved alignment status post ORIF of lateral tibial plateau fracture. Surgical hardware and associated fixation screws in expected position. Bony alignment is stable. Surgical melissa within the soft tissues present. Soft tissues: Small joint effusion. No suspicious soft tissue calcifications. IMPRESSION: Improved alignment status post ORIF of tibial plateau fracture. Dictated by: Andreas Fleming RRArun Interpreted: Justin Cervantes MD on 09/04/2016 at 16 :39 Transcribed by: EDIN on 09/04/2016 at 16:40 Approved by: Justin Cervnates M.D. on 09/04/2016 at 17:15 Assessment & Plan This is a 26-year-old patient status post ORIF left tibial plateau fracture. Patient was in naltrexone for alcohol abuse Assessment #1 status post ORIF left tibial plateau fracture -- Continue pain control per surgery. Switched him to morphine IV, oxycodone, gabapentin pain management -- CBC, CMP -- Encourage ambulation -- Aspirin prophylaxis per orthopedic surgery Depression: Continue Prozac medication Alcohol abuse: We plan to hold naltrexone until he is able to manage his pain better without narcotics. Documented metabolite halftime 13-14 hours, there may still be some remaining in his system until tomorrow Disposition: Discharge plan per orthopedic surgery Thank you for the consult will continue to follow the patient VTE Prophylaxis: Other (Aspirin) VTE Mechanical Devices: Intermittant Pneumatic CD Lin Castorena DO Sep 05, 2016 05:40
--- NOTE | 2016-09-05 06:30 | NUR ---
Pain/Activity Pt c/o LT leg pain 10/24. "I think the sciatica block is wearing off." Pharmacy contacted for Tylenol 1000mg IV. RN to administer upon arrival. Pt did not get out of bed this shift and used the urinal several times. Continues with non weight bearing to LT leg. Immobilizer and bruce wrap in place. care ongoing.
[2016-09-05 06:45] LABS: BASOPHILS % (AUTO) 0.1 % (0-3); EOSINOPHILS % (AUTO) 1.6 % (0-5); MONOCYTES % (AUTO) 7.2 % (4-12); Mean Corpuscular Hemoglobin 31.3 pg (27.0-35.0); NEUTROPHILS % (AUTO) 74.6 % (40-74); Platelet Count 177 bil/L (150-400)
[2016-09-05] MEDS: Senna-Docusate 8.6-50 mg Tablet PO SCH ×2 (09:01→21:26)
--- NOTE | 2016-09-05 10:04 | PCM.PNORTH ---
Subjective Date of Service: Sep 05, 2016 Visit Information: Reason for Visit Left Tibial Plateau Fracture Surgery/Surgery Date left tibial plateau ORIF 09/04/2016 Post-Op Day # 1 Date of Admission: Sep 04, 2016 at 17:30 Hospital Day # Subjective Patient states he is comfortable at this time. He is sitting up eating breakfast. Brace and dressing do not feel too tight. He complains of incisional pain when he tries to get up. Patient has residual weakness in the right arm secondary to CP. Postop General: No Complaints, No Shortness of Breath, No Chest Pain, Good Appetite Pain Management: PO, IV Push Objective Exam Objective Patient is seen sitting up in bed. He is alert oriented and cooperative to exam. Pleasant mood and appreciative of the staff Vital Signs and I/O Vital Sign - Last Date Time Temp Pulse Resp B/P Pulse Ox O2 Delivery O2 Flow Rate FiO2 09/05/16 05:13 36.8 90 20 109/65 95 Room Air 09/04/16 14:40 10 Intake and Output 09/04/16 09/04/16 09/05/16 Cumulative From/Thru 15:00 23:00 07:00 09/03/16 16:06 - 09/05/16 06:36 Intake Total 950 ml 100 ml 4263 ml 5313 ml Output Total 800 ml 2690 ml 3490 ml Balance 950 ml -700 ml 1573 ml 1823 ml Intake Oral 3025 ml 3025 ml IV Total 950 ml 100 ml 1238 ml 2288 ml Output Urine Total 800 ml 2690 ml 3490 ml # Voids 4 4 # Bowel Movements 0 0 Lab & Micro Results Laboratory Tests Test 09/04/16 18:05 09/05/16 06:34 White Blood Count 10.9th/mm3 (3.8-10.1) 8.1th/mm3 (3.8-10.1) Red Blood Count 4.20mil/mm3 (4.40-5.80) 3.51mil/mm3 (4.40-5.80) Hemoglobin 13.1g/dL (13.8-17.2) 11.0g/dL (13.8-17.2) Hematocrit 38.7% (41.0-50.0) 33.0% (41.0-50.0) Mean Corpuscular Volume 92.1fL (81-100) 94.0fL (81-100) Mean Corpuscular Hemoglobin 31.2pg (27.0-35.0) 31.3pg (27.0-35.0) Mean Corpuscular Hemoglobin Concent 33.9% (32.0-37.0) 33.3% (32.0-37.0) Red Cell Distribution Width 13.2% (12.3-15.4) 13.0% (12.3-15.4) Platelet Count 227bil/L (150-400) 177bil/L (150-400) Neutrophils (%) (Auto) 93.4% (40-74) 74.6% (40-74) Lymphocytes (%) (Auto) 4.6% (14-46) 15.9% (14-46) Monocytes (%) (Auto) 1.1% (4-12) 7.2% (4-12) Eosinophils (%) (Auto) 0.3% (0-5) 1.6% (0-5) Basophils (%) (Auto) 0.1% (0-3) 0.1% (0-3) Sodium Level 140mEq/L (134-144) 139mEq/L (134-144) Potassium Level 4.3mEq/L (3.5-5.2) 3.9mEq/L (3.5-5.2) Chloride Level 101mEq/L (97-108) 103mEq/L (97-108) Carbon Dioxide Level 25mmol/L (18-29) 20mmol/L (18-29) Blood Urea Nitrogen 11mg/dL (6-20) 10mg/dL (6-20) Creatinine 0.77mg/dL (0.76-1.27) 0.65mg/dL (0.76-1.27) Estimat Glomerular Filtration Rate 129mL/min (>59) 157mL/min (>59) Glucose Level 151mg/dL (60-99) 151mg/dL (60-99) Calcium Level 9.3mg/dL (8.5-10.1) 8.2mg/dL (8.5-10.1) Result Diagram: 09/05/16 0634 09/05/16 0634 General Appearance: Alert, Oriented X3, Cooperative, No Acute Distress Extremities: Distal Pulses Palpable, No Compartment Syndrom Noted, Thigh & Calf Soft/Nontender Postop Sensory Motor: Distal Motor Intact, NVI Distally SURGICAL WOUND : Wound Location/Description Surgical dressing is clean dry and intact on the left lower extremity. Leg is covered and elastic bandage from thigh to toes. Patient is in a long-leg postop hinged brace that is locked in extension Activity: Ambulate with PT Catheters: None Assessment & Plan Impression POD#1 left tibial plateau ORIF Problems: Plan Weightbearing: Nonweightbearing left lower extremity for 8-12 weeks Left leg postop brace locked in extension at all times DVT prophylaxis: aspirin 325 mg twice a day 6 weeks Physical therapy for transfers, progressive ambulation, therapeutic exercise Patient may need an alternative crutch for the right upper extremity due to weakness from cerebral palsy. He may benefit from a forearm crutch or a platform crutch. Wound care: Leave dressing in place until first postoperative visit Discharge plan: anticipate discharge home in 2 days with his mother to assist in his care Patient was given a prescription for Percocet #90 at the office prior to his surgery We appreciate hospitalist consultation regarding perioperative medical management Follow-up plan: In 2 weeks at [facility] with ROSELINE for wound check and at [address] Peter with x-rays Pain Management: Percocet, Dilaudid is available VTE Prophylaxis: Other (Aspirin) Resuscitation Status: CPR: Attempt Resuscitation Aminta Shah PA-C Sep 05, 2016 10:04
[2016-09-05] MEDS: hydrOXYzine Pamoate 25 mg Capsule PO PRN ×3 (10:50→23:10)
[2016-09-05] MEDS: HYDROmorphone 0.5 mg/0.5 mL iSecure Syringe IVPUSH PRN ×3 (12:57→15:58)
--- NOTE | 2016-09-05 13:20 | NUR ---
Evaluation completed. Please go to "Notes" then click on "Assessments and Notes" (bottom left corner of screen). Then select appropriate discipline tab on top of screen.
[2016-09-05 14:07] VITALS: BP 142/91; PULSE 96; RESP 17; O2SAT 97
--- NOTE | 2016-09-05 15:52 | NUR ---
Faxed facesheet to [facility] [phone] [employer]. Patient will need this delivered to hospital as soon as possible.
--- NOTE | 2016-09-05 16:31 | NUR ---
Social Work-screening: Data:EMR Reviewed. Pt is a 26 y/o male who was admitted on 09/04/16 for left tibial fracture per h&P. Pt's insurance is [employer] and PCP is DO Yousuf. EMR Reviewed. SW met with pt to discuss discharge planning, SW role explained. Pt has been staying at transitional housing, but will staying with his mom on Saturday at discharge. Pt denies any recent drug or ETOH use and feels like he will be able to stay sober. Pt is enrolled at [facility] for [facility] health. Pt has crutches, but PT recommending home with outpt PT and Fww. SW discussed with pt and he is agreeable. SW asked UR specialist to work on Fww for pt to be delivered to the hospital tomorrow. SW placed a call to mom Jamee to discuss, SW role explained. Mom is hopeful to catch the 2:10 ferry [place] to [place] tomorrow. SW explained about priority boarding pass to be provided. SW also discussed Outpt PT recommendation and SW working on fww. Mother agreeable to plan and SW provided her with phone number. SW will continue to follow. Assessment:pt who is independent at baseline. Plan:Pt to discharge home with mom on Saturday via POV when medically stable. UR specialist working on having Fww delivered to room from [facility]. priority boarding pass to be provided. SW will continue to follow. ERICA Weaver
[2016-09-05] MEDS ORDERED: oxyCODONE-Acetamin 5-325 mg Tablet PO PRN (18:05)
[2016-09-05 20:27] VITALS: BP 153/92; PULSE 109; RESP 20; O2SAT 94
[2016-09-05] MEDS: oxyCODONE-Acetamin 5-325 mg Tablet PO PRN (22:12)
[2016-09-06] MEDS: Sodium Chloride LOK Flush 10 mL Syringe IV SCH ×2 (01:41→10:31)
--- NOTE | 2016-09-06 03:37 | NUR ---
Pain Patient states his pain level remains 8/10 even after 2 Percocet. Vistaril and Benadryl given and patient was able to sleep. IV morphine given once to help manage pain. Patient A&Ox3. Vitals stable. Rm air.
[2016-09-06] MEDS: oxyCODONE-Acetamin 5-325 mg Tablet PO PRN ×2 (04:29→10:32)
[2016-09-06 04:35] VITALS: BP 145/92; PULSE 80; RESP 18; O2SAT 98
--- NOTE | 2016-09-06 05:25 | PCM.PNMED ---
Subjective Date of Service Sep 06, 2016 Exam Vital Signs Vital Sign - Last Date Time Temp Pulse Resp B/P Pulse Ox O2 Delivery O2 Flow Rate FiO2 09/06/16 04:35 36.5 80 18 145/92 98 Room Air 09/04/16 14:40 10 Intake and Output 09/05/16 09/05/16 09/06/16 Cumulative From/Thru 14:59 22:59 06:59 09/03/16 16:06 - 09/06/16 00:16 Intake Total 400 ml 2040 ml 7753 ml Output Total 2400 ml 5890 ml Balance 400 ml -360 ml 1863 ml Intake Oral 2040 ml 5065 ml IV Total 400 ml 2688 ml Output Urine Total 2400 ml 5890 ml # Voids 4 # Bowel Movements 0 0 Lab and Diagnostics Result Diagram: 09/05/16 0634 09/05/16 0634 X-Rays, CTs and MRIs [facility] Diagnostic Imaging Department [place], [place] [id number] Patient Name: MARIANGEL GARRISON MR#: [id number] [place] [facility] [place] Phys: Win Peter DO Date of Service: 09/04/16 1406 PROCEDURE: X-RAY LEFT KNEE, ONE OR TWO VIEWS ([id number]) INDICATIONS: LEFT KNEE SURGERY TECHNIQUE: 2 views of the knee were acquired. COMPARISON: [facility], CR, XR KNEE 1 OR 2VW LT, 08/28/2016, 12:29. FINDINGS: Bones: Improved alignment status post ORIF of lateral tibial plateau fracture. Surgical hardware and associated fixation screws in expected position. Bony alignment is stable. Surgical melissa within the soft tissues present. Soft tissues: Small joint effusion. No suspicious soft tissue calcifications. IMPRESSION: Improved alignment status post ORIF of tibial plateau fracture. Dictated by: Andreas Fleming RRArun Interpreted: Justin Cervantes MD on 09/04/2016 at 16 :39 Transcribed by: EDIN on 09/04/2016 at 16:40 Approved by: Justin Cervantes M.D. on 09/04/2016 at 17:15 Assessment & Plan This is a 26-year-old patient status post ORIF left tibial plateau fracture. Patient was in naltrexone for alcohol abuse Assessment #1 status post ORIF left tibial plateau fracture -- Continue pain control per surgery. Switched him to morphine IV, oxycodone, gabapentin pain management -- CBC, CMP -- Encourage ambulation -- Aspirin prophylaxis per orthopedic surgery Depression: Continue Prozac medication Alcohol abuse: We plan to hold naltrexone until he is able to manage his pain better without narcotics. Documented metabolite halftime 13-14 hours, there may still be some remaining in his system until tomorrow Disposition: Discharge plan per orthopedic surgery Thank you for the consult will continue to follow the patient VTE Prophylaxis: Other (Aspirin) VTE Mechanical Devices: Intermittant Pneumatic CD Resuscitation Status: CPR: Attempt Resuscitation Lin Castorena DO Sep 06, 2016 05:25
[2016-09-06 07:19] LABS: BASOPHILS % (AUTO) 0.3 % (0-3); EOSINOPHILS % (AUTO) 4.6 % (0-5); MONOCYTES % (AUTO) 11.3 % (4-12); Mean Corpuscular Hemoglobin 31.5 pg (27.0-35.0); Mean Corpuscular Volume 94.7 fL (81-100); Platelet Count 186 bil/L (150-400)
--- NOTE | 2016-09-06 07:29 | PCM.PNORTH ---
Subjective Date of Service: Sep 06, 2016 Visit Information: Reason for Visit Left Tibial Plateau Fracture Surgery/Surgery Date left tibia plateau ORIF and bone grafting 09/04/2016 Post-Op Day # 2 Date of Admission: Sep 04, 2016 at 17:30 Hospital Day # Subjective Patient complains of incisional pain when he is up in the leg is down in the dependent position. He ambulated nonweightbearing with a front wheel walker with physical therapy yesterday. He will be recuperating at his mother's house in Saturday. They are hoping to catch the 1:30 [place] Today Postop General: No Shortness of Breath, No Chest Pain, Good Appetite Pain Management: PO, IV Push Objective Exam Objective Patient is seen lying in bed. Dr. Peter is also present. Vital Signs and I/O Vital Sign - Last Date Time Temp Pulse Resp B/P Pulse Ox O2 Delivery O2 Flow Rate FiO2 09/06/16 04:35 36.5 80 18 145/92 98 Room Air 09/04/16 14:40 10 Intake and Output 09/05/16 09/05/16 09/06/16 Cumulative From/Thru 15:00 23:00 07:00 09/03/16 16:06 - 09/06/16 05:24 Intake Total 400 ml 2040 ml 754 ml 8507 ml Output Total 2400 ml 1720 ml 7610 ml Balance 400 ml -360 ml -966 ml 897 ml Intake Oral 2040 ml 754 ml 5819 ml IV Total 400 ml 2688 ml Output Urine Total 2400 ml 1720 ml 7610 ml # Voids 4 # Bowel Movements 0 1 1 Lab & Micro Results Laboratory Tests Test 09/06/16 06:40 Result Diagram: 09/05/16 0634 09/05/16 0634 General Appearance: Alert, Oriented X3, Cooperative, No Acute Distress Extremities: Distal Pulses Palpable, No Compartment Syndrom Noted, Thigh & Calf Soft/Nontender Postop Sensory Motor: Distal Motor Intact, NVI Distally SURGICAL WOUND : Wound Location/Description Dressing is clean, dry and intact. Long leg hinged postoperative brace is locked in extension. It is intact. Activity: Ambulate with PT Catheters: None Assessment & Plan Impression POD#2 status post left tibial plateau ORIF and bone grafting Problems: Plan Weightbearing: Nonweightbearing left lower extremity for 8-12 weeks Left leg postop brace locked in extension at all times DVT prophylaxis: aspirin 325 mg twice a day 6 weeks Physical therapy for transfers, progressive ambulation, therapeutic exercise Patient may need an alternative crutch for the right upper extremity due to weakness from cerebral palsy. He may benefit from a forearm crutch or a platform wallker. Wound care: Leave dressing in place until first postoperative visit Discharge plan: anticipate discharge home today with his mother to assist in his care Patient was given a prescription for Percocet #90 at the office prior to his surgery Discharge medications: Vistaril, Colace We appreciate hospitalist consultation regarding perioperative medical management Follow-up plan: In 2 weeks at [facility] with ROSLEINE for wound check and at [address] Peter with x-rays Pain Management: Percocet, gabapentin, morphine VTE Prophylaxis: Other (Aspirin) Resuscitation Status: CPR: Attempt Resuscitation Aminta Shah PA-C Sep 06, 2016 07:29
--- NOTE | 2016-09-06 07:49 | PCM.DIORTH ---
Ortho Discharge Instruction Date of Service: Sep 06, 2016 Dates of Hospitalization Date of Hospital Admission Sep 04, 2016 at 17:30 Providers Admitting Physician: Win Peter DO Primary Care Physician: Goyo To DO Attending Physician: Win Peter DO Diet Discharge Diet: No restrictions Activity Discharge Activity-General: Elevate & ice extremity Left Lower Extremity: Toe-Touch Weight Bearing Range of motion restrictions: None for the knee. May move the ankle Discharge Assist Device: Front Wheeled Walker, Knee Brace (locked in extension at all times (knee straight)) Dressing and Incisional Care Discharge Dressing Care: Keep dressing clean, dry & intact Discharge Hygiene: DO NOT soak incision under water, NO bathtub, hot tub or whirlpool Additional Instructions Discharge Instructions Weightbearing: Nonweightbearing left lower extremity for 8-12 weeks. When standing the left foot may touch the ground but do not lean on the foot at all. Left leg postop brace locked in extension at all times. The [place] buttons on the side of the brace should always be pushed down towards the foot for the locked position. DVT prophylaxis: aspirin 325 mg twice a day 6 weeks Wound care: Leave dressing in place until first postoperative visit Patient was given a prescription for Percocet #90 at the office prior to his surgery Discharge medications: Vistaril, Colace Showering: wrap towel around top of the leg and cover with plastic bag. Do not soak or submerge the leg. If dressing gets wet patient will need to be seen in the office for a dressing change. Follow Up Plan Follow Up Plan Follow-up plan: In 2 weeks at [facility] with ROSELINE for wound check and at [address] Peter with x-rays Call your provider for: Fever, Chills, Shortness of breath, Vomitting, Drainage at incision Aminta Shah PA-C Sep 06, 2016 07:49
[2016-09-06] MEDS ORDERED: GABA100C PO (08:03)
[2016-09-06] MEDS ORDERED: HYDR-3797 PO (08:03)
[2016-09-06] MEDS ORDERED: DOCU-41 PO (08:03)
[2016-09-06] MEDS ORDERED: ASPI325T32 PO (08:03)
[2016-09-06] MEDS ORDERED: POLY17PO6 PO (08:03)
[2016-09-06] MEDS ORDERED: WALK1EAC55 MC (08:05)
--- NOTE | 2016-09-06 09:19 | NUR ---
Social Work- Readiness for Discharge Data:EMR Reviewed. Pt is on day 2 of hospitalization for left tibial fracture per h&P. TERESE spoke with [facility] regarding delivery of pt's fww to hospital room. [place] states they are working on delivery, will update HEEL EMERY BUFFER when information is known. Priority Boarding paperwork completed. PT recommends home with outpt PT. Pt to discharge to Saturday with mother via POV. SW will continue to follow. Assessment: Pt who is independent at baseline. Plan: Pt to discharge home with mom on Saturday via POV when medically stable. Priority Boarding pass complete. [facility] working on delivering fww to patient. SW will continue to follow. Lillian Taylor MSW
[2016-09-06] MEDS: Senna-Docusate 8.6-50 mg Tablet PO SCH (10:31)
--- NOTE | 2016-09-06 10:35 | NUR ---
Social Work- Discharge Data:EMR Reviewed. Pt is on day 2 of hospitalization for left tibial fracture per h&P. Pt to discharge today. [facility] to deliver fww to pt's room prior to discharge. Priority Boarding paperwork completed. PT recommends home with outpt PT. Pt to discharge to Saturday with mother via POV. No other discharge needs. Assessment: Pt who is independent at baseline. Plan: Pt to discharge home with mom on Saturday via POV when medically stable. Priority Boarding pass complete. [facility] delivering fww to patient. No other discharge needs. Lillian Taylor MSW
--- NOTE | 2016-09-06 12:08 | NUR ---
Discharge Pt discharged at 1150 in w/c to private vehicle with Mom. VSS, RODRIGUEZ, A&O x 3. Pain controlled at 5/10 with medications. Pt has immobilizer in place and understands to keep on use toe touch only. Pt has discharge instructions, care notes and all rx's. All questions answered and has all belongings. IV removed intact.
--- NOTE | 2016-09-10 11:07 | PCM.DC.MED ---
Discharge Summary Date of Service Sep 10, 2016 Dates of Hospitalization Date of Hospital Admission Sep 04, 2016 at 17:30 Date of Discharge: Sep 06, 2016 Providers: Admitting Physician: Win Perez DO Primary Care Physician: Goyo To DO Attending Physician: Win Perez DO Diagnosis at Time of Discharge Diagnosis at Time of Discharge Left tibial plateau open reduction and internal fixation with bone grafting, Depression, Alcohol abuse Consultations Ortho, PT/OT Procedures XRay, CTs & MRIs [facility] Diagnostic Imaging Department [place], [place] [id number] Patient Name: MARIANGEL GARRISON MR#: [id number] Location: [facility] Ordering Phys: Win Perez DO Date of Service: 09/04/16 1406 PROCEDURE: X-RAY LEFT KNEE, ONE OR TWO VIEWS ([id number]) INDICATIONS: LEFT KNEE SURGERY TECHNIQUE: 2 views of the knee were acquired. COMPARISON: [facility], CR, XR KNEE 1 OR 2VW LT, 08/28/2016, 12:29. FINDINGS: Bones: Improved alignment status post ORIF of lateral tibial plateau fracture. Surgical hardware and associated fixation screws in expected position. Bony alignment is stable. Surgical melissa within the soft tissues present. Soft tissues: Small joint effusion. No suspicious soft tissue calcifications. IMPRESSION: Improved alignment status post ORIF of tibial plateau fracture. Dictated by: Andreas Fleming [facility] Interpreted: Justin Cervantes MD on 09/04/2016 at 16 :39 Transcribed by: EDIN on 09/04/2016 at 16:40 Approved by: Justin Cervantes M.D. on 09/04/2016 at 17:15 Invasive Procedures 09/04/16 Left tibial plateau open reduction and internal fixation with bone grafting. Brief History 26-year-old male with past medical history depression, trigeminal neuralgia, alcohol abuse, cerebral palsy is seen for a consult after he underwent left tibial plateau fracture repair by Dr. PEREZ. He says that he was climbing trees on a [place] and he fell approximately foot for 5 days ago4 days ago. He states he consumed some alcohol prior to this He states that he was taken to the ER right after he was given 1 Vicodin. He was unable to bear weight right after. He he did not receive any pain medications from ER because he was taking as a lot of ibuprofen. He was seen by Dr. Flynn today at which point he received multiple pain medications. He stopped NALTREXONE as he understands he should not take it with pain meds. His last dose was yesterday morning. He states that he takes Prozac for his depression, he tried to hurt himself back when he was a teenager and was hospitalized. Nola Espino is disconjugate for medical management. At this time of interview patient is recovering from anesthesia and appears slightly groggy. He states he had no fevers, cough, diarrhea, recent infections. All other review of systems negative except as stated here Hospital Course This is a 26-year-old patient status post ORIF left tibial plateau fracture. Patient was in naltrexone for alcohol abuse Assessment #1 status post ORIF left tibial plateau fracture -- Continue pain control per surgery. -- CBC, CMP -- Encourage ambulation -- Aspirin prophylaxis per orthopedic surgery -- PT/OT Depression: Continue Prozac medication, this was restarted on 09/05/16. Alcohol abuse: We held naltrexone until he is able to manage his pain better without narcotics. Disposition: Discharge plan per orthopedic surgery. Thank you for the consult will continue to follow the patient. Please note that ortho has discharged the patient on 09/06/16 AM as they are the primary team. He was not seen by the hospitalist team yet on 09/06/16. Exam Vital Signs (Last) Date Time Temp Pulse Resp B/P Pulse Ox O2 Delivery O2 Flow Rate FiO2 09/06/16 10:07 Room Air 09/06/16 04:35 36.5 80 18 145/92 98 09/04/16 14:40 10 Test 09/05/16 06:34 09/06/16 06:40 Hemoglobin A1c 5.4% (4.8-5.6) White Blood Count 6.8th/mm3 (3.8-10.1) Red Blood Count 3.94mil/mm3 (4.40-5.80) Hemoglobin 12.4g/dL (13.8-17.2) Hematocrit 37.3% (41.0-50.0) Mean Corpuscular Volume 94.7fL (81-100) Mean Corpuscular Hemoglobin 31.5pg (27.0-35.0) Mean Corpuscular Hemoglobin Concent 33.2% (32.0-37.0) Red Cell Distribution Width 13.1% (12.3-15.4) Platelet Count 186bil/L (150-400) Neutrophils (%) (Auto) 59.0% (40-74) Lymphocytes (%) (Auto) 23.5% (14-46) Monocytes (%) (Auto) 11.3% (4-12) Eosinophils (%) (Auto) 4.6% (0-5) Basophils (%) (Auto) 0.3% (0-3) Sodium Level 139mEq/L (134-144) Potassium Level 4.3mEq/L (3.5-5.2) Chloride Level 104mEq/L (97-108) Carbon Dioxide Level 23mmol/L (18-29) Blood Urea Nitrogen 17mg/dL (6-20) Creatinine 0.65mg/dL (0.76-1.27) Estimat Glomerular Filtration Rate 157mL/min (>59) Glucose Level 101mg/dL (60-99) Calcium Level 8.6mg/dL (8.5-10.1) Total Bilirubin 0.3mg/dL (0.0-1.2) Aspartate Amino Transf (AST/SGOT) 37U/L (0-50) Alanine Aminotransferase (ALT/SGPT) 54U/L (0-44) Alkaline Phosphatase 69U/L (25-150) Total Protein 6.3g/dL (6.4-8.4) Albumin 4.1g/dL (3.4-5.0) Discharge Medications Discharge Medications Aspirin (Aspirin) 325 Mg Tablet 325 MG PO BID Prescribed by: MANNY HANSEN Docusate Sodium (Colace) 100 Mg Capsule 100 MG PO BID Prescribed by: MANNY HANSEN Fluoxetine (Prozac) 40 Mg Capsule 40 MG PO DAILY (Reported) Gabapentin (Neurontin) 100 Mg Capsule 100 MG PO TID Prescribed by: MANNY HANSEN As needed Hydroxyzine Pamoate (HydrOXYzine Pamoate) 25 Mg Capsule 25 MG PO Q4H PRN PRN For Spasm and/or Restlessness Prescribed by: MANNY HANSEN Polyethylene Glycol 3350 (Miralax) 17 Gm Powd.pack 17 GM PO DAILY PRN PRN For Constipation Prescribed by: MANNY HANSEN oxyCODONE-Acetaminophen 5-325 mg (oxyCODONE-Acetaminophen 5-325 mg) 1 Each Tablet 1-2 TAB PO Q6H PRN PRN For Pain (Reported) Durable Medical Equipment Walker (Ultra-Light Rollator) 1 Each Each 1 EACH [facility] (DME) Prescribed by: MANNY HANSEN Aruna DO Sep 10, 2016 11:07
--- NOTE | 2016-09-26 11:26 | PCM.DC.ORT ---
Discharge Summary Date of Service: Sep 26, 2016 Date of Hospital Admission: Sep 04, 2016 at 17:30 Date of Surgery: Sep 04, 2016 Date of Discharge: Sep 06, 2016 Reason for Hospitalization: Left tibial plateau fracture Procedures Performed: Left tibial plateau ORIF and bone grafting Hospital Course: The patient is a 26-year-old male fell 15 feet out of a tree fracturing her left tibial plateau. He was admitted to the hospital on 09/04 for open reduction internal fixation and bone grafting by Dr. Peter. Antibody prophylaxis consisted of Ancef. Patient tolerated the procedure well was transferred to recovery room in stable condition. Patient was admitted postoperatively for pain control and mobility issues. Physical therapy was ordered. Patient's mobility is complicated by history of cerebral palsy with right upper extremity weakness. Hospitalist service was also consult for perioperative medical management. The patient progressed well with physical therapy and was discharged home on with his mother to assist in his care. Diagnosis at Time of Discharge Status post left tibial plateau ORIF and bone grafting Problems: Disposition: Discharged home in stable condition with his mother to assist in his care Additional Information Follow-up [facility] with PA in 2 weeks for wound check, and at [address] Peter with x-ray Discharge Instructions: Weightbearing: Nonweightbearing left lower extremity for 8-12 weeks. When standing the left foot may touch the ground but do not lean on the foot at all. Left leg postop brace locked in extension at all times. The [place] buttons on the side of the brace should always be pushed down towards the foot for the locked position. DVT prophylaxis: aspirin 325 mg twice a day 6 weeks Wound care: Leave dressing in place until first postoperative visit Patient was given a prescription for Percocet #90 at the office prior to his surgery Discharge medications: Vistaril, Colace Showering: wrap towel around top of the leg and cover with plastic bag. Do not soak or submerge the leg. If dressing gets wet patient will need to be seen in the office for a dressing change. Aspirin (Aspirin) 325 Mg Tablet 325 MG PO BID Docusate Sodium (Colace) 100 Mg Capsule 100 MG PO BID Fluoxetine (Prozac) 40 Mg Capsule 40 MG PO DAILY Gabapentin (Neurontin) 100 Mg Capsule 100 MG PO TID Hydroxyzine Pamoate (HydrOXYzine Pamoate) 25 Mg Capsule 25 MG PO Q4H PRN PRN For Spasm and/or Restlessness Polyethylene Glycol 3350 (Miralax) 17 Gm Powd.pack 17 GM PO DAILY PRN PRN For Constipation Walker (Ultra-Light Rollator) 1 Each Each 1 EACH [facility] (DME) oxyCODONE-Acetaminophen 5-325 mg (oxyCODONE-Acetaminophen 5-325 mg) 1 Each Tablet 1-2 TAB PO Q6H PRN PRN For Pain Aminta Shah PA-C Sep 26, 2016 11:26
== END 2016-09-06 11:50 | disposition home or self-care (01) | DRG 494 ==
LOC: SAS 09:40 → OSC 16:07 → SAS 17:29 → OSC 17:30
PROVIDERS: ADMIT Orthopaedic Surgery; ATTEND Orthopaedic Surgery
PROC: 0QUH07Z Supplement Left Tibia with Autologous Tissue Substitute, Open Approach (ICD-10-PCS; 2016-09-04)
PROC: 0QSH04Z Reposition Left Tibia with Internal Fixation Device, Open Approach (ICD-10-PCS; principal; 2016-09-04 12:00)
DX: S82.142A Displaced bicondylar fracture of left tibia, initial encounter for closed fracture (principal); F32.9 Major depressive disorder, single episode, unspecified; W17.89XA Other fall from one level to another, initial encounter; Y93.89 Activity, other specified; G80.9 Cerebral palsy, unspecified; F10.10 Alcohol abuse, uncomplicated; G50.0 Trigeminal neuralgia

== ENCOUNTER 2016-12-03 04:33 | Emergency (ER) | payer OTHER ==
[2016-12-03] VITALS (7 sets, daily range): BP systolic 120–179; BP diastolic 80–102; PULSE 102–126; RESP 18–22; O2SAT 96–98
[~2016-12-03 04:33] MED LIST changes: +ASPI325T32 PO; -CeFAZolin Inj 2 GM in IV Premix 1 EACH IV ONE; +DOCU-41 PO; +GABA100C PO; +HYDR-3797 PO; -NALT50TA PO; +OXYC1TAB24 PO; +POLY17PO6 PO; +WALK1EAC55 MC
--- NOTE | 2016-12-03 05:07 | ED.REPORT ---
HPI-Overdose/Alcohol Toxicity Date of Service Dec 03, 2016 ED Provider: Ronnie Ellis MD The patient is a 26 year old male with a medical history including cerebral palsy, renal insufficiency, polysubstance abuse, and depression s/p multiple suicide attempts who presents to the ED via EMS after being found down next to his wheelchair in front of a store, intoxicated on alcohol. EMS found the patient confused with a systolic blood pressure of 125. He became aggressive once placed on a gurney and was given 200mg Ketamine en route. The patient arrives in 4-point locked restraints. His eyes are open and tracking but he is not responding to questions. History could not be obtained from the patient due to intoxication and sedation. Nursing Notes Stated Complaint: ETOH Chief Complaint: Substance Abuse Nursing Notes Reviewed: Yes Allergies: Coded Allergies: haloperidol (Verified Allergy, Unknown, 12/01/15) lorazepam (Verified Allergy, Unknown, Muscle cramps, 12/01/15) Scheduled Aspirin (Aspirin) 325 Mg Tablet 325 MG PO BID Docusate Sodium (Colace) 100 Mg Capsule 100 MG PO BID Fluoxetine (Prozac) 40 Mg Capsule 40 MG PO DAILY Gabapentin (Neurontin) 100 Mg Capsule 100 MG PO TID Scheduled PRN Hydroxyzine Pamoate (HydrOXYzine Pamoate) 25 Mg Capsule 25 MG PO Q4H PRN PRN For Spasm and/or Restlessness Polyethylene Glycol 3350 (Miralax) 17 Gm Powd.pack 17 GM PO DAILY PRN PRN For Constipation oxyCODONE-Acetaminophen 5-325 mg (oxyCODONE-Acetaminophen 5-325 mg) 1 Each Tablet 1-2 TAB PO Q6H PRN PRN For Pain General Time Seen by Provider: 05:05 Chief Complaint Intoxicated, alcohol, Other (Found Down) Hx Obtained From: Patient Arrived By: Ambulance Onset Occurred: Onset unknown Symptom Duration: Since onset Pertinent Negative: Relieved by nothing Related History: Reports: Depression, Overdose, Substance abuse, Suicidal attempt Immunizations: Unknown Recent Healthcare: No recent doctor visit Past Medical History Past Medical History Polysubstance abuse Multiple suicide attempts, drug overdose of aspirin Cerebral Palsy Renal insufficiency Depression Past Surgical History None Family History noncontributory Smoking History Current Every Day Smoker Social History Polysubstance drug use Alcohol Use: 1-3 per day Drug Use: In recovery, Meth Other Social History: Local resident, Homeless Ambulatory Status Independent Review of Systems Unable to Obtain ROS Patient condition, Intoxicated Physical Exam Initial Vital Signs Vital Signs (First) Date Time Temp Pulse Resp B/P Pulse Ox O2 Delivery O2 Flow Rate FiO2 12/03/16 04:40 38.0 126 18 179/102 96 Room Air Initial VS: Reviewed, Vital signs abnormal Head / Eyes: Atraumatic, Normocephalic ENT: Conjunctiva normal, No scleral icterus Skin: Warm, Dry, No cyanosis General/Constitutional: Not toxic appearing Alertness: Positive: Sedated Appearance / Presentation: Positive: Intoxicated Examination limited due to Ketamine given prior to arrival Patient smells strongly of alcohol Respiratory / Chest: Breath sounds NL, Breath sounds = bilat, No respiratory distress Cardiovascular: Heart rate NL, Regular rhythm, Heart sounds NL Abdomen: Soft, No distention Interpretation & Diagnostics URINE DRUG SCREEN: + Oxycodone Otherwise Negative URINE DIPSTICK: Bedside Urine Specific [place] * 1.010 Bedside Urine pH * 5 Bedside Urine Leukocyte Esterase * Negative Bedside Urine Nitrite * Negative Bedside Urine Protein * Negative Bedside Urine Glucose * Normal Bedside Urine Ketones * Negative Bedside Urine Urobilinogen * Normal Bedside Urine Occult Blood * Negative Urine to Lab * Yes Lab Results Interpretation Result Diagram: 12/03/16 0445 Test 12/03/16 04:45 12/03/16 05:15 White Blood Count 6.6th/mm3 (3.8-10.1) Red Blood Count 5.04mil/mm3 (4.40-5.80) Hemoglobin 15.1g/dL (13.8-17.2) Hematocrit 43.4% (41.0-50.0) Mean Corpuscular Volume 86.1fL (81-100) Mean Corpuscular Hemoglobin 30.0pg (27.0-35.0) Mean Corpuscular Hemoglobin Concent 34.8% (32.0-37.0) Red Cell Distribution Width 12.6% (12.3-15.4) Platelet Count 251bil/L (150-400) Neutrophils (%) (Auto) 64.7% (40-74) Lymphocytes (%) (Auto) 28.2% (14-46) Monocytes (%) (Auto) 4.9% (4-12) Eosinophils (%) (Auto) 1.7% (0-5) Basophils (%) (Auto) 0.2% (0-3) Hold Urine Received (Received) Re-Eval/Medical Decision Source of Hx: Old records Re-Evaluation/Progress : Time of Eval: 05:45 Re-Evaluation/Progress Note: Patient's care will be transferred to Dr. Aguirre at change of shift. Counseled Regarding: Diagnosis Discharge & Departure Shift Change Sign-Out Patient Care Transferred: Yes (Dr. Aguirre) Discussed Complaint(s): Yes Laboratory Evaluation: Ordered, not yet done Response to Therapy: Improved Impression: Primary Impression: Alcohol intoxication Complication of substance-induced condition: uncomplicated Qualified Code: F10.120 - Alcohol abuse with intoxication, uncomplicated Referrals: Goyo To DO (PCP) Care Transferred to: Dr. Aguirre Care Transferred at: 06:00 Scribe Attestation Portions of this note were transcribed by Oanh Medina. I, Dr. Ellis, personally performed the history, physical exam, and medical decision-making; I reviewed and confirmed the accuracy of the information in the transcribed note. Signed by: Jeremy Costa, 12/03/2016, 05:55 copies to: Goyo To Howard L MD Dec 03, 2016 05:07 OANH MEDINA Dec 03, 2016 05:15
[2016-12-03 05:15] LABS: BASOPHILS % (AUTO) 0.2 % (0-3); EOSINOPHILS % (AUTO) 1.7 % (0-5); MONOCYTES % (AUTO) 4.9 % (4-12); Mean Corpuscular Volume 86.1 fL (81-100); NEUTROPHILS % (AUTO) 64.7 % (40-74); Platelet Count 251 bil/L (150-400)
[2016-12-03] MEDS ORDERED: Ketamine 100 mg/mL 5 mL Inj IM ONE (05:15)
[2016-12-03] MEDS ORDERED: Ketamine 100 mg/mL 5 mL Inj IV ONE (05:55)
[2016-12-03] MEDS ORDERED: Ondansetron 2 mg/mL 2 mL Inj IVPUSH ONE ×2 (06:55→11:30)
[2016-12-03] MEDS ORDERED: 0.9% Sodium Chloride 1,000 ML IV ONE ×2 (06:55→13:50)
--- NOTE | 2016-12-03 08:27 | DRSVH ---
PROCEDURE: CT BRAIN WITHOUT CONTRAST ([id number]) INDICATIONS: fall from wheelchair, intoxicated TECHNIQUE: Noncontrast 4.5 mm thick angled axial sections acquired from the foramen magnum to the vertex, with c oronal reformats. COMPARISON: None. FINDINGS: Image quality: Excellent. CSF spaces: Basal cisterns are patent. No extra-axial fluid collections. Ventricles are normal in size and shape. Brain: No midline shift. No intracranial masses or hemorrhage. Mar-white matter interface is norm al. Skull and face: Calvarium and visualized facial bones are intact, without suspicious lesions. Sinuses: Right maxillary sinus mild mucosal thickening noted. Left maxillary sinus mucus retention cy sts versus polyps noted. The mastoids are clear. IMPRESSION: No acute intracranial disease process. Dictated by: Rhonda Iqbal MD, PhD on 12/03/2016 at 8:24 Approved by: Rhonda Iqbal MD, PhD on 12/03/2016 at 8:26
[2016-12-03] MEDS ORDERED: Promethazine Inj 50 MG in 0.9% Sodium Chloride-Pha MIX 100 ML IV ONE (13:50)
== END 2016-12-03 18:32 | disposition home or self-care (01) ==
LOC: SED 04:33 → EDBD 04:33 → SED 18:32
DX: F10.120 Alcohol abuse with intoxication, uncomplicated (principal); R11.12 Projectile vomiting; T41.295A Adverse effect of other general anesthetics, initial encounter; G80.9 Cerebral palsy, unspecified; F15.21 Other stimulant dependence, in remission; F17.200 Nicotine dependence, unspecified, uncomplicated; N18.9 Chronic kidney disease, unspecified; F32.9 Major depressive disorder, single episode, unspecified; Z91.5 Personal history of self-harm; Z78.1 Physical restraint status; Z79.82 Long term (current) use of aspirin; Z88.8 Allergy status to other drugs, medicaments and biological substances
CPT/HCPCS: 36415; 70450; 80053; 83735; 84443; 85025; 96365; 96375; 96376; 99285; G0480; J2405; J2550; J7030